=== PATIENT | male | born 1975 | race African-American/Black ===

== ENCOUNTER 2024-04-15 19:16 | Emergency (ER) | payer SELFPAY ==
[~2024-04-15] VITALS: Ht 175.3 cm; Wt 68.0 kg
[2024-04-15 19:29] VITALS: BP 128/78; PULSE 84; RESP 15; TEMP 38.3; O2SAT 99
== END 2024-04-15 21:00 | disposition left against medical advice (07) ==
LOC: ER 19:16
DX: R53.1 Weakness (principal); R50.9 Fever, unspecified; Z53.21 Procedure and treatment not carried out due to patient leaving prior to being seen by health care provider

== ENCOUNTER 2024-07-20 20:21 | Inpatient (IN) | payer OTHER, MEDICAID ==
[~2024-07-20] VITALS: Ht 185.4 cm; Wt 101.6 kg
[2024-07-20 21:29] LABS: BASOPHILS % 0.6 % (0.0-2.0); EOSINOPHILS % 2.3 % (0.0-5.0); HEMOGLOBIN. 13.5 g/dL (14.0-18.0); LYMPHOCYTES % 25.8 % (20.0-50.0); MEAN CORPUSCULAR HEMOGLOBIN 30.6 pg (28.0-32.0); MEAN CORPUSCULAR HGB CONC 33.7 g/dL (31.0-37.0); MEAN CORPUSCULAR VOLUME 90.9 fL (80.0-94.0); MEAN PLATELET VOLUME 8.3 fl (7.4-10.4); MONOCYTES % 8.4 % (2.0-8.0); NEUTROPHILS % 62.9 % (40.0-76.0); PLATELET 208 x1000/uL (130-400); RED BLOOD CELL COUNT 4.41 mill/uL (4.7-6.1); RED CELL DISTRIBUTION WIDTH 13.8 % (11.6-14.6)
[2024-07-20 21:36] LABS: CHLORIDE 107 mEq/L (98-107); POTASSIUM 3.5 mEq/L (3.5-5.1); SODIUM 142 mEq/L (136-145)
[2024-07-20 21:37] LABS: CARBON DIOXIDE 29 mEq/L (21-32)
[2024-07-20 21:38] LABS: CALCIUM 8.9 mg/dL (8.7-10.4)
[2024-07-20 21:42] LABS: CREATININE 0.8 mg/dL (0.6-1.3); GLUCOSE 124 mg/dL (70-105); UREA NITROGEN BLOOD 9 mg/dL (9-23)
[2024-07-20 21:43] LABS: ETHANOL BLOOD < 10 mg/dL (<10); TROPONIN I HIGH SENSITIVITY 24 ng/L (3.0-53)
[2024-07-20 21:49] LABS: *AMPHETAMINES SCREEN URINE NEGATIVE (NEGATIVE); *BARBITURATES SCREEN URINE NEGATIVE (NEGATIVE); *BENZODIAZEPINES SCREEN URINE NEGATIVE (NEGATIVE); *COCAINE SCREEN URINE NEGATIVE (NEGATIVE); CANNABINOID URINE SCREEN NEGATIVE (NEGATIVE); ECSTASY MDMA SCREEN URINE NEGATIVE (NEGATIVE); METHADONE URINE SCREEN NEGATIVE (NEGATIVE); OPIATES URINE SCREEN NEGATIVE (NEGATIVE); PHENCYCLIDINE URINE SCREEN NEGATIVE (NEGATIVE)
[2024-07-20 23:50] LABS: TROPONIN I HIGH SENSITIVITY 80 ng/L (3.0-53)
[2024-07-21] MEDS: ASPIRIN 325MG EC TABLET PO ONE
[2024-07-21] MEDS ORDERED: CLONIDINE 0.1MG TABLET PO PRN (00:15)
[2024-07-21] MEDS ORDERED: MORPHINE SULFATE 2 MG/ML INJ (NOT FOR IM USE) IV PRN (00:15)
[2024-07-21] MEDS ORDERED: NALOXONE HCL 0.4MG/ML VIAL IV PRN (00:15)
[2024-07-21] MEDS ORDERED: ACETAMINOPHEN 325MG TABLET PO PRN (00:15)
[2024-07-21] MEDS ORDERED: IPRATROPIUM/ALBUTEROL 0.5-3(2.5)MG/3ML NEB NEB PRN (00:15)
[2024-07-21] MEDS ORDERED: ZOLPIDEM TARTRATE 5MG TABLET PO PRN (00:15)
[2024-07-21] MEDS ORDERED: ONDANSETRON HCL 4MG/2ML INJ IV PRN (00:15)
[2024-07-21] MEDS ORDERED: MAGNESIUM/ALUMINUM HYDROXIDE/SIMETHICONE 30ML UDC PO PRN (00:15)
[2024-07-21] MEDS ORDERED: HYDROCODONE/ACETAMINOPHEN 5/325MG TABLET PO PRN (00:15)
[2024-07-21 02:09] LABS: TROPONIN I HIGH SENSITIVITY 93 ng/L (3.0-53)
[2024-07-21 03:21] VITALS: BP 134/88; PULSE 64; RESP 19; TEMP 36.5
[2024-07-21 04:00] VITALS: BP 130/80; PULSE 67; RESP 18; TEMP 36.5; O2SAT 100
[2024-07-21 08:00] VITALS: BP 105/69; PULSE 62; RESP 20; TEMP 36.5; O2SAT 99
[2024-07-21] MEDS: PANTOPRAZOLE SODIUM 40 MG/VIAL IV SCH (08:37)
[2024-07-21] MEDS: ENOXAPARIN 40MG/0.4ML SYR SUBCUT SCH (08:37)
[2024-07-21] MEDS: ASPIRIN 81MG EC TABLET PO SCH (08:37)
[2024-07-21] MEDS: METOPROLOL TARTRATE 25MG TABLET PO SCH (09:00)
[2024-07-21 12:00] VITALS: BP 121/78; PULSE 62; RESP 19; TEMP 36.6; O2SAT 96
[2024-07-21 14:23] LABS: TROPONIN I HIGH SENSITIVITY 23 ng/L (3.0-53)
[2024-07-21 16:00] VITALS: BP 118/89; RESP 19; TEMP 36.7
[2024-07-21 17:43] VITALS: BP 118/89; PULSE 58; TEMP 98; O2SAT 98
[2024-07-21] MEDS ORDERED: METO25TA6 PO (17:45)
[2024-07-21] MEDS ORDERED: ASPI-1406 PO (17:45)
[2024-07-21 19:19] LABS: TROPONIN I HIGH SENSITIVITY 17 ng/L (3.0-53)
== END 2024-07-21 19:08 | disposition home or self-care (01) | DRG 282 ==
LOC: ER 20:21 → EDBD 20:21 → 5WST 07-21 → ENRESERV 07-21 00:28
PROVIDERS: ADMIT Internal Medicine; ATTEND Internal Medicine
DX: I47.19 Other supraventricular tachycardia (principal); I21.A1 Myocardial infarction type 2; D64.9 Anemia, unspecified; I10 Essential (primary) hypertension; Z87.891 Personal history of nicotine dependence
CPT/HCPCS: 36415; 71045; 80048; 80305; 80320; 83880; 84484; 85025; 93005; 99285; J1650; J2470; G0480